=== PATIENT | female | born 1970 | race Caucasian/White ===

== ENCOUNTER 2016-12-11 15:18 | Emergency (ER) | payer OTHER ==
[2016-12-11 15:34] VITALS: RESP 16; TEMP 98.2
--- NOTE | 2016-12-11 16:22 | EDPHY ---
H & P Stated Complaint: Various sxs since Wednesday;was in area w/new carpet,plastic floor,paint HPI/ROS: HPI CHIEF COMPLAINT: Chemical exposure at work HISTORY OF PRESENT ILLNESS: this patient very pleasant 46-year-old female, she presents emergency room she states that she has been exposed to chemicals at work. She is a school bus operator. 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 She states there has been very strong odor she has been feeling ill at work. Specifically she has been getting lightheaded, and also states that she has had a metallic taste in her mouth. This happened multiple times over the past week. She states she was exposed twice. She decided to not go to work. She tried to make appoint with her doctor about her symptoms and workman's Comp was referred to the emergency room as nobody could see her today. Upon arrival to the emergency room she appears well nontoxic to her only complaint is metallic taste her mouth. She denies headache, chest pain, shortness of breath. Denies focal weakness numbness or tingling. Past Medical History: No significant medical history Past Surgical History: no significant surgical Social History: denies daily use of drugs alcohol tobacco products Family History: noncontributory ROS REVIEW OF SYSTEMS: A comprehensive 10 point review of systems is otherwise negative aside from elements mentioned in the history of present illness. Exam Constitutional appears well nontoxic triage nursing summary reviewed, vital signs reviewed, awake/alert. Eyes normal conjunctivae and sclera, EOMI, PERRLA. HENT normal inspection, atraumatic, moist mucus membranes, no epistaxis, neck supple/ no meningismus, no raccoon eyes. Respiratory clear to auscultation bilaterally, normal breath sounds, no respiratory distress, no wheezing. Cardiovascular rate normal, regular rhythm, no murmur, no edema, distal pulses normal. Gastrointestinal soft, non-tender, no rebound, no guarding, normal bowel sounds, no distension, no pulsatile mass. Genitourinary no CVA tenderness. Musculoskeletal no midline vertebral tenderness, full range of motion, no calf swelling, no tenderness of extremities, no meningismus, good pulses, neurovascularly intact. Skin pink, warm, & dry, no rash, skin atraumatic. Neurologic awake, alert and oriented x 3, AAOx3, moves all 4 extremities equally, motor intact, sensory intact, CN II-XII intact, normal cerebellar, normal vision, normal speech. Psychiatric normal mood/affect. Heme/Lymph/Immune no lymphadenopathy. Differential Diagnosis: includes but is not limited to in a particular order, environmental chemical exposure, electrolyte disturbance, dehydration Medical Decision Making: plan for this patient basic blood work IV hydration, re -evaluate. I do recommend she follows up with her employ workman's Comp. I do recommend she stays out of the environment that is giving her or making her feel ill. It is possible that new carpet new plastic new pain is causing her to feel ill. Re-evaluation: 1726: Patient is resting comfortably here in emergency room in no acute distress she is sitting on her cell phone giggling and laughing. She denies any complaints. Her vital signs are stable. Workup here in emergency room shows normal blood work. I do recommend she follows up with workman's Comp in her boy about returning to work if she is concerned about excessive chemicals in her workplace environment. Source: Patient - Personal History LMP (Females 10-55): Now Current Tetanus Diphtheria and Acellular Pertussis (TDAP): Yes - Medical/Surgical History Other PMH: migraines - Social History Smoking Status: Never smoked Constitutional: Initial Vital Signs Temperature (C) 36.8 C 12/11/16 15:28 Heart Rate 80 12/11/16 15:28 Respiratory Rate 16 12/11/16 15:28 Blood Pressure 101/64 12/11/16 15:28 O2 Sat (%) 99 12/11/16 15:28 O2 Delivery Mode Room Air Allergies/Adverse Reactions: Penicillins Allergy (Intermediate, Verified 12/11/16 15:34) Hives Home Medications: Medication Instructions Recorded NK [No Known Home Meds] 12/11/16 Medical Decision Making - Data Points Laboratory Results: Laboratory Results 12/11/16 16:44 12/11/16 16:44 12/11/16 12/11/16 16:44 16:44 WBC 8.79 10^3/uL 10^3/uL (3.80-9.50) RBC 4.82 10^6/uL 10^6/uL (4.18-5.33) Hgb 11.6 g/dL L g/dL (12.6-16.3) Hct 36.9 % L % (38.0-47.0) MCV 76.6 fL L fL (81.5-99.8) MCH 24.1 pg L pg (27.9-34.1) MCHC 31.4 g/dL L g/dL (32.4-36.7) RDW 16.3 % H % (11.5-15.2) Plt Count 280 10^3/uL 10^3/uL (150-400) MPV 10.9 fL fL (8.7-11.7) Neut % (Auto) 56.8 % % (39.3-74.2) Lymph % (Auto) 28.6 % % (15.0-45.0) [place] % (Auto) 11.6 % % (4.5-13.0) Eos % (Auto) 1.7 % % (0.6-7.6) Baso % (Auto) 1.1 % % (0.3-1.7) Nucleat RBC Rel Count 0.0 % % (0.0-0.2) Absolute Neuts (auto) 4.99 10^3/uL 10^3/uL (1.70-6.50) Absolute Lymphs (auto) 2.51 10^3/uL 10^3/uL (1.00-3.00) Absolute Monos (auto) 1.02 10^3/uL H 10^3/uL (0.30-0.80) Absolute Eos (auto) 0.15 10^3/uL 10^3/uL (0.03-0.40) Absolute Basos (auto) 0.10 10^3/uL 10^3/uL (0.02-0.10) Absolute Nucleated RBC 0.00 10^3/uL 10^3/uL (0-0.01) Immature Gran % 0.2 % % (0.0-1.1) Immature Gran # 0.02 10^3/uL 10^3/uL (0.00-0.10) Sodium 140 mEq/L mEq/L (134-144) Potassium 4.2 mEq/L mEq/L (3.5-5.2) Chloride 105 mEq/L mEq/L (97-110) Carbon Dioxide 21 mEq/l L mEq/l (22-31) Anion Gap 14 mEq/L mEq/L (8-16) BUN 15 mg/dL mg/dL (7-23) Creatinine 0.8 mg/dL mg/dL (0.6-1.0) Estimated GFR > 60 Glucose 78 mg/dL mg/dL (70-100) Calcium 9.6 mg/dL mg/dL (8.5-10.4) Total Bilirubin 0.5 mg/dL mg/dL (0.1-1.4) AST 21 IU/L IU/L (14-46) ALT 24 IU/L IU/L (9-52) Alkaline Phosphatase 51 IU/L IU/L (38-126) Total Protein 8.1 g/dL g/dL (6.3-8.2) Albumin 4.7 g/dL g/dL (3.5-5.0) Medications Given: Discontinued Medications Sodium Chloride (Ns) 1,000 mls @ 0 mls/hr IV ONCE ONE PRN Reason: Wide Open Stop: 12/11/16 16:28 Last Admin: 12/11/16 16:39 Dose: 1,000 mls Departure - Departure Disposition: Home, Routine, Self-Care Clinical Impression: Chemical exposure Condition: Good Instructions: Weakness (ED) Additional Instructions: 1. Stay well-hydrated drink lots of fluids. 2. I would recommend he stay out of the work environment until the fumes dissipated or your cleared to go back to work through your employ or workman's Comp. Referrals: Julianne Patiño PA [Primary Care Provider] - As per Instructions
[2016-12-11] MEDS ORDERED: NS 1,000 ML IV ONE (16:27)
[2016-12-11 16:52] LABS: % IMMATURE GRANULYOCYTES 0.2 % (0.0-1.1); ABSOLUTE IMMATURE GRANULOCYTES 0.02 10^3/uL (0.00-0.10); ADD DIFF? NO; ADD MORPH? NO; ADD SCAN? NO; ATYPICAL LYMPHOCYTE FLAG 40 (0-99); FRAGMENT RBC FLAG 0 (0-99); HEMATOCRIT 36.9 % (38.0-47.0); HEMOGLOBIN 11.6 g/dL (12.6-16.3); LEFT SHIFT FLG 0 (0-99); LIPEMIA HEMOLYSIS FLAG 80 (0-99); MEAN CELL HEMOGLOBIN 24.1 pg (27.9-34.1); MEAN CELL HEMOGLOBIN CONCENTR. 31.4 g/dL (32.4-36.7); MEAN CELL VOLUME 76.6 fL (81.5-99.8); MEAN PLATELET VOLUME 10.9 fL (8.7-11.7); PLATELET CLUMPS FLAG 0 (0-99); PLATELET COUNT 280 10^3/uL (150-400); RED BLOOD CELL COUNT 4.82 10^6/uL (4.18-5.33); RED CELL DISTRIBUTION WIDTH 16.3 % (11.5-15.2)
[2016-12-11 17:07] LABS: ALANINE AMINOTRANSFERASE 24 IU/L (9-52); ALBUMIN 4.7 g/dL (3.5-5.0); ALKALINE PHOSPHATASE 51 IU/L (38-126); ANION GAP 14 mEq/L (8-16); ASPARTATE AMINOTRANSFERASE 21 IU/L (14-46); BILIRUBIN,TOTAL 0.5 mg/dL (0.1-1.4); CALCIUM 9.6 mg/dL (8.5-10.4); CARBON DIOXIDE 21 mEq/l (22-31); CHLORIDE 105 mEq/L (97-110); CREATININE 0.8 mg/dL (0.6-1.0); GLOMERULAR FILTRATION RATE > 60; GLUCOSE 78 mg/dL (70-100); POTASSIUM 4.2 mEq/L (3.5-5.2); SODIUM 140 mEq/L (134-144); TOTAL PROTEIN 8.1 g/dL (6.3-8.2)
[2016-12-11 18:01] VITALS: BP 104/65; PULSE 71; O2SAT 100
== END 2016-12-11 18:00 | disposition home or self-care (01) ==
DX: Z77.098 Contact with and (suspected) exposure to other hazardous, chiefly nonmedicinal, chemicals (principal); R42 Dizziness and giddiness